=== PATIENT | female | born 1970 | race Caucasian/White ===

== ENCOUNTER 2017-05-04 19:33 | Emergency (ER) | payer BC ==
[2017-05-04 20:05] LABS: Urine Bilirubin Negative (NEGATIVE); Urine Blood Negative /ul (NEGATIVE); Urine Ketone Negative (NEGATIVE); Urine Nitrite Negative (NEGATIVE); Urine Protein Negative (NEGATIVE); Urine Specific Gravity 1.015 SP.GR. (1.005-1.010); Urine Urobilinogen Normal (NORMAL)
[2017-05-04 20:14] LABS: Urine Amorphous Sediment Few - 1+ (NONE-FEW); Urine Appearance Slightly Cloudy; Urine Bacteria 2+; Urine Color Yellow; Urine RBC None Seen /hpf (0-5); Urine WBC None Seen /hpf (0-5)
[2017-05-04 20:52] LABS: Hematocrit 34.6 % (37.0-47.0); Hemoglobin 11.3 gm/dL (12.5-16.0); Mean Cell Volume 88.7 fl (78-100); Mean Corpuscular Hgb Conc 32.7 g/dl (32-36); Mean Platelet Volume 9.5 fl (6.0-9.5); Neutrophil # 3.1 K/mm3 (1.3-6.0); Neutrophil % 61.7 % (42-75.0); Platelet Count 265 K/mm3 (150-450); Red Cell Distribution Width 12.6 % (11.5-14.0)
--- NOTE | 2017-05-04 20:57 | ERNOTE ---
Abdominal HPI - Narrative Date of Service: 05/04/17 - General Chief Complaint: Abdominal Pain Time Seen by Provider: 05/04/17 20:07 Source: patient Exam Limitations: no limitations - Immun/Allergies/Home Medications Immunizatons: IMMUNIZATION HX Immunizations Up to Date Yes History of Influenza Vaccine Yes Hx Pneumococcal Vaccination No Allergies/Adverse Reactions: Allergies No Known Allergies Allergy (Verified 05/04/17 19:42) Home Medications: HOME MEDICATIONS Citalopram Hydrobromide [Celexa] 20 mg PO DAILY 05/04/17 [Last Taken Unknown] Mineral Oil [Fleet Mineral Oil Enema] 1 enema RC DAILY PRN 1 Days btl 05/04/17 [Last Taken Unknown] traZODone HCL [Trazodone HCl] 50 mg PO PRN PRN 05/04/17 [Last Taken Unknown] - History of Present Illness Narrative: patient presents to the ER for abdominal pain and RLQ tenderness. patient states she has a history of chronic constipation but this time it feels different. she states she took a colon cleanser today to help with her constipation and she only had a small BM. Date (Duration): 05/04/17 Timing: getting worse Review of Systems - Review of Systems Constitutional: Present: no symptoms reported EYE: Present: no symptoms reported ENT: Present: no symptoms reported Respiratory: Present: no symptoms reported Cardiology: Present: no symptoms reported Gastrointestinal/Abdominal: Present: See HPI, constipation Genitourinary: Present: no symptoms reported Musculoskeletal: Present: no symptoms reported Skin: Present: no symptoms reported Neurological: Present: no symptoms reported Endocrine: Present: no symptoms reported Hematologic/Lymphatic: Present: no symptoms reported Psych: Present: no symptoms reported All Other Systems: All systems neg except as marked - Patient's Past Medical History Patient History - Medical: Other Patient History - Cardiac/Respiratory: No pertinent hx Patient History - Cancer: Cervical, Ovarian Patient History - Surgical Procedures: Cholecystectomy, Hysterectomy, Other Patient History - Other: None LMP (females 10-50): unknown - Social History Living Situations: spouse Abuse History: No History of abuse Psych History: No pertinent hx Smoking Status: Never smoker Have you smoked in the past 12 months: No Do you dip or chew tobacco: No Alcohol Use: rarely Drug Use: none - Immunizations Immunizations Up to Date: Yes Hx Pneumococcal Vaccination: No History of Influenza Vaccine: Yes Physical Exam - Physical Exam General Appearance: Present: wd/wn, alert, no apparent distress Head Exam: Present: normal inspection, no evidence of injury Eye Exam: Normal inspection: bilateral, PERRL: bilateral, EOMI: bilateral Ears, Nose, Throat: Present: normal ENT inspection Neck: Present: normal inspection, nontender, full range of motion Respiratory: Present: no respiratory distress, normal breath sounds, no accessory muscle use, chest nontender, lungs clear Cardiovascular/Chest: Present: regular rate, rhythm, no murmur, normal peripheral pulses Gastrointestinal/Abdominal: Present: soft, tenderness, abnormal bowel sounds, distended Back Exam: Present: normal inspection, normal range of motion, no vertebral tenderness, CVA tenderness (R), CVA tenderness (L) Extremity Exam: Present: normal inspection, non-tender, normal range of motion, no edema Neurological Exam: Present: alert, oriented, normal mood/affect, no motor/ sensory deficits Skin Exam: Present: normal color, warm/dry Lymphatic Exam: Present: no adenopathy ED Progress - Results and Orders Patient's Lab Results:: I have reviewed the patient's lab results. - Vital Signs Vital Signs: Vital Signs 05/04/17 05/04/17 19:36 20:01 Temperature 36.5 C 36.0 C L Pulse Rate 95 60 Respiratory 16 16 Rate Blood Pressure 143/93 118/66 O2 Sat by Pulse 97 99 Oximetry - X-Ray X-Ray #1 X-Ray: abdomen Interpretation: Reviewed by me X-ray Comments: Ordering Physician: Nicky Mendenhall Indication: Right lower quadrant abdominal pain. Constipation. Bloating. Technique: Supine and upright views the abdomen utilizing 4 total images compared to prior examination dated January 30, 2016. Findings: Cholecystectomy clips in the right upper quadrant. Moderate fecal retention seen throughout the colon. No dilation of the colon. No air-filled or dilated loops of small bowel to suggest obstruction. No free air or free fluid. IMPRESSION: MODERATE FECAL RETENTION WITHOUT EVIDENCE FOR OBSTRUCTION. Electronically signed by Christopher Hernandez D.O.. Christopher Hernandez DO Dict: 05/04/172032 Typed: 05/04/172032/ - Progress/Reassessment Chief Complaint: Abdominal Pain Progress:: Unchanged Plan - Plan Plan: patient would like to try a mineral oil enema at home and will follow up with her GI doctor in the AM. Departure Clinical Impression: Constipation Qualifiers: Constipation type: chronic idiopathic constipation Qualified Code(s): K59.04 - Chronic idiopathic constipation - Departure Disposition: Home self-care Condition: Stable Instructions: Constipation, Adult, [id number] Additional Instructions: follow up with you GI doctor in the Am. return if you have fever, increase in pain or inability to have a BM at home Referrals: Houston Bustamante ARNP [Primary Care Provider] - Prescriptions: Mineral Oil [Fleet Mineral Oil Enema] 1 enema RC DAILY PRN 1 Days btl PRN Reason: Constipation
[2017-05-04 21:05] LABS: Albumin * 3.8 gm/dl (3.4-5.0); Anion Gap 10.8 mmol/L (6.8-13.8); Bilirubin, Total 0.4 mg/dL (0.0-1.1); Ca. Corrected For Albumin 8.6 mg/dL (8.4-10.2); Calcium * 8.8 mg/dL (7.9-10.9); Carbon Dioxide 31.1 mmol/L (24-32.6); Potassium 3.9 mmol/L (3.4-4.6); Total Protein 7.2 gm/dL (6.2-8.2)
[2017-05-04 21:49] VITALS: BP 128/66
== END 2017-05-04 21:50 | disposition home or self-care (01) ==
LOC: ER 19:33
DX: K59.04 Chronic idiopathic constipation (principal); Z85.41 Personal history of malignant neoplasm of cervix uteri; Z85.43 Personal history of malignant neoplasm of ovary

== ENCOUNTER 2017-09-09 09:52 | Emergency (ER) | payer BC | END 2017-09-09 10:06 | disposition left against medical advice (07) | LOC: ER 09:52 | DX: Z53.21 Procedure and treatment not carried out due to patient leaving prior to being seen by health care provider (principal) ==